=== PATIENT | male | born 1960 | race Caucasian/White ===

== ENCOUNTER 2020-11-02 08:55 | Day surgery (SDC) | payer BC ==
[2020-11-01 10:00] VITALS: BMI 25.4
--- NOTE | 2020-11-01 19:23 | HP ---
HISTORY AND PHYSICAL DATE OF SURGERY: 11/02/2020 Baldo Choudhary is a 60-year-old gentleman who was seen with a left foot subacute crush injury. There was a concern for potential abscess. We discussed options. I recommended irrigation and debridement of the left foot. He was agreeable. Consent was obtained. PAST MEDICAL HISTORY: Noncontributory. SURGICAL HISTORY: Bilateral knee arthroscopy, bilateral shoulder surgery. MEDICATIONS: Bactrim. ALLERGIES: NONE. SOCIAL HISTORY: He denies current tobacco use. PHYSICAL EVALUATION OF LEFT FOOT: There is a granulating wound along the distal lateral foot to include the plantar aspect of 5th toe. There is some mild erythema proximally. Some mild serous drainage. No palpable abscess. There is good perfusion distally. He has a good pedal pulse present. Radiographs of his left foot revealed a complex displaced subacute proximal phalanx fracture of the 5th toe. IMPRESSION: 1. Left foot crush injury with residual wound and possible abscess. 2. History of left 5th toe proximal phalanx fracture. PLAN: Irrigation and debridement of the left foot wound. MMODL / IJN: [id number] /
[2020-11-02] MEDS ORDERED: ONDANSETRON 4 MG/2 ML VIAL ONE (09:32)
[2020-11-02] MEDS ORDERED: LACTATED RINGERS 1,000 ML IV ONE (09:32)
[2020-11-02] MEDS ORDERED: DEXAMETHASONE SOD PHOSPHATE 4 MG/ML 1 ML VIAL IVP ONE (09:34)
[2020-11-02] MEDS ORDERED: ONDANSETRON 4 MG/2 ML VIAL IVP ONE (09:34)
[2020-11-02 09:56] LABS: ALT 22 U/L (4-49); AST 27 U/L (17-59); African American GFR (CKD) >90 (>60 ml/min/1.73 sqM); Albumin 4.3 g/dL (3.5-5.0); Alkaline Phosphatase 82 U/L (38-126); Anion Gap 10 mmol/L; Blood Urea Nitrogen 13 mg/dL (9-20); Calcium 9.6 mg/dL (8.4-10.2); Carbon Dioxide 22 mmol/L (22-30); Chloride 108 mmol/L (98-107); Glucose 104 mg/dL (74-99); Non-African American GFR(CKD) 80 (>60 ml/min/1.73 sqM); Potassium 4.3 mmol/L (3.5-5.1); Sodium 140 mmol/L (137-145); Total Bilirubin 0.3 mg/dL (0.2-1.3); Total Protein 6.9 g/dL (6.3-8.2)
[2020-11-02 10:11] LABS: Basophils % (A) 0 %; Eosinophils # (A) 0.2 k/uL (0-0.7); Eosinophils % (A) 2 %; HCT 42.6 % (39.0-53.0); HGB 14.7 gm/dL (13.0-17.5); Lymphocytes # (A) 1.9 k/uL (1.0-4.8); Lymphocytes % (A) 27 %; MCH 28.6 pg (25.0-35.0); MCHC 34.4 g/dL (31.0-37.0); MCV 83.2 fL (80.0-100.0); Monocytes # (A) 0.5 k/uL (0-1.0); Monocytes % (A) 7 %; Neutrophils # (A) 4.5 k/uL (1.3-7.7); Neutrophils % (A) 63 %; Platelet Count 260 k/uL (150-450); RBC 5.12 m/uL (4.30-5.90); RDW 12.5 % (11.5-15.5); WBC 7.2 k/uL (3.8-10.6)
[2020-11-02] MEDS ORDERED: fentaNYL (PF) 50 MCG/ML 2 ML AMP ONE (10:11)
[2020-11-02] MEDS ORDERED: PROPOFOL 10 MG/ML 20 ML VIAL IV ONE (10:11)
[2020-11-02] MEDS ORDERED: MIDAZOLAM 2 MG/2 ML VIAL ONE (10:11)
[2020-11-02] MEDS ORDERED: LIDOCAINE 1% INJ 10MG/ML (20 ML MDV) ONE (10:11)
--- NOTE | 2020-11-02 11:01 | P.OP ---
Date of Procedure: 11/02/20 Preoperative Diagnosis: Left lateral foot wound Postoperative Diagnosis: Left lateral foot wound measuring 3 cm X 2 cm Procedure(s) Performed: Irrigation and incisional debridement left lateral foot wound measuring 3 cm x 2 cm Anesthesia: LEANNE Surgeon: Donal Victoria Mine Expert #1: Ilya Otto Estimated Blood Loss (ml): 7 Pathology: none sent Condition: stable Disposition: PACU Indications for Procedure: 60-year-old gentleman seen with a left lateral foot wound with a concern for possible deep infection. I discussed options. We elected to proceed with irrigation debridement Operative Findings: see description of procedure Description of Procedure: Patient was taken to the operative suite. He received preoperative IV antibiotics. He underwent a general anesthetic by the department of anesthesia. The left foot was prepped and draped in the normal sterile orthopedic fashion. I evaluated the wound. The measured 3 cm x 2 cm along the distal lateral foot area extending into the plantar aspect of the small toe. I now began at the distal end of the wound and utilizing a #15 blade I performed an incisional debridement of some necrotic appearing tissue which was superficial. I got into the subcutaneous fat but there was no evidence for any abnormal tissue deeper than that. I now began debriding out the necrotic-appearing tissue along the large area of this wound again utilizing a #15 blade performing an incisional debridement of the superficial necrotic appearing tissue. Just along the lateral aspect of the metatarsal phalangeal joint area there was a deeper area of necrotic tissue. I again debrided this out noting it was still the subcutaneous area and nothing communicating with the deep/bony areas. Once that completed the incisional debridement of all the necrotic tissue utilizing a #15 blade I evaluated the wound. I could not find any evidence for any deep infection. I now irrigated the wound out copiously with 1000 mL of antibiotic irrigant solution. I again explored the wound and again noted all the necrotic tissue had been successfully debrided out. I did approximate the distal part of the wound with 3 simple interrupted nylon sutures. I applied sterile dressings and a sterile bandage. The patient was awakened having tolerated procedure well. No tourniquet was utilized. Tadeo PARKINSON assisted with the procedure.
[2020-11-02 11:06] VITALS: TEMP 96.8
[2020-11-02 11:34] VITALS: RESP 16
[2020-11-02 12:40] VITALS: BP 122/70; PULSE 63
== END 2020-11-02 12:55 | disposition home or self-care (01) ==
LOC: OR 08:55 → EDBD 11:15 → OR 12:55
PROVIDERS: ATTEND Orthopaedic Surgery
DX: S91.302A Unspecified open wound, left foot, initial encounter (principal)
CPT/HCPCS: 11042; 80053; 85025; 87070; 87205; J2250; J1100; J0690; J2405; J2001; J3010; J2704

== ENCOUNTER → 2021-09-15 | Outpatient (CLI) | payer BC ==
[2021-09-15 11:26] LABS: Basophils # (A) 0.05 X 10*3/uL (0.00-0.10); Eosinophils # (A) 0.17 X 10*3/uL (0.04-0.35); Eosinophils % (A) 3.3 %; HCT 41.6 % (39.6-50.0); Immature Grans, Automated 0.2 %; Lymphocytes % (A) 33.1 %; MCH 27.7 pg (27.0-32.0); MCHC 33.7 g/dL (32.0-37.0); MCV 82.4 fL (80.0-97.0); Mean Platelet Volume 9.4 fL (9.5-12.2); Monocytes # (A) 0.49 X 10*3/uL (0.20-1.00); Monocytes % (A) 9.5 %; NRBC Per 100 WBC 0 /100 WBCS (0.0-0.0); Neutrophils # (A) 2.72 X 10*3/uL (1.80-7.70); Neutrophils % (A) 52.9 %; Platelet Count 248 X 10*3/uL (140-440); RBC 5.05 X 10*6/uL (4.40-5.60); RDW 12.5 % (11.5-14.5); WBC 5.14 X 10*3/uL (4.50-10.00)
[2021-09-15 11:35] LABS: Anion Gap 8.9 mmol/L (10.00-18.00); BUN/Creat Ratio 20.6 Ratio (12.00-20.00); Blood Urea Nitrogen 17.3 mg/dL (9.0-27.0); Calcium 8.9 mg/dL (8.7-10.3); Carbon Dioxide 24.5 mmol/L (20.0-27.5); Non-African American GFR(CKD) 93.2 (60.0-200.0); Potassium 4.3 mmol/L (3.5-5.5)
[2021-09-15 12:43] LABS: INR 0.93 (0.90-1.11); Prothrombin Time 10.5 sec (9.9-11.9)
== END | disposition home or self-care (01) ==
LOC: LABPAT 08:03
PROVIDERS: ATTEND Orthopaedic Surgery
DX: Z01.812 Encounter for preprocedural laboratory examination (principal); Z22.322 Carrier or suspected carrier of Methicillin resistant Staphylococcus aureus; M17.11 Unilateral primary osteoarthritis, right knee
CPT/HCPCS: 80048; 85025; 85610; 87070; 93005

== ENCOUNTER → 2021-09-19 | Day surgery (SDC) | payer BC ==
[2021-09-18 09:54] VITALS: BMI 25.0
--- NOTE | 2021-09-18 10:31 | HP ---
HISTORY AND PHYSICAL DATE OF SURGERY: 09/19/2021 Baldo Choudhary is a 61-year-old gentleman seen with symptomatic right knee osteoarthritis. We discussed options for treatment. He elected to proceed with right total knee arthroplasty. Consent was obtained. PAST MEDICAL HISTORY: Noncontributory. PAST SURGICAL HISTORY: Multiple right knee surgeries, left knee arthroscopy, bilateral shoulder surgery. DAILY MEDICATIONS: Ibuprofen. ALLERGIES: NONE. SOCIAL HISTORY: He denies tobacco use. PHYSICAL EVALUATION OF THE RIGHT KNEE: He has multiple previous well-healed incisions. His range of motion is negative 3 to 100. He has a moderate effusion. Tenderness along the medial and lateral joint lines. Positive medial Matilde's. Positive lateral Matilde's. Crepitus along the medial and lateral patellofemoral compartments with range of motion. There is some pain with patellofemoral compression. Ligaments stable. Hip rotation without pain. Distal neurovascular exam is intact. Radiographs of the right knee reveal severe osteoarthritic changes. IMPRESSION: Right knee osteoarthritis. PLAN: Right total knee arthroplasty. MMODL / IJN: [id number] /
[~2021-09-19] MED LIST: ACETAMINOPHEN TAB 500 MG TAB PO PRN; DEXAMETHASONE SOD PHOSPHATE 4 MG/ML 1 ML VIAL IV ONE; GLYCOPYRROLATE 0.2 MG/ML 2 ML VIAL ONE; HYDROcodone/APAP 5-325MG 1 EACH TAB PO PRN; HYDROcodone/APAP 7.5-325MG 1 EACH TAB PO ONE; HYDROcodone/APAP 7.5-325MG 1 EACH TAB PO PRN; HYDROmorphone (PF) 1 MG/ML ONE; HYDROmorphone 0.5 MG/0.5 ML SYRINGE IVP PRN; HYDROmorphone 1 MG/ML 1 ML SYRINGE IVP PRN; KETAMINE 10 MG/ML 20 ML VIAL ONE; LACTATED RINGERS 1,000 ML IV ONE; LACTATED RINGERS 1,000 ML IV SCH; LIDOCAINE 1% (10MG/ML) FOR IV START INTRADERMA PRN; LIDOCAINE 2% INJ 20 MG/ML (2 ML VIAL) ONE; MELOXICAM 7.5 MG TAB PO PRN; MIDAZOLAM 2 MG/2 ML VIAL IV PRN; MIDAZOLAM 2 MG/2 ML VIAL IVP ONE; NALOXONE 0.4 MG/ML 1 ML VIAL IV PRN; NEOSTIGMINE 1 MG/ML 10 ML VIAL ONE; ONDANSETRON 4 MG/2 ML VIAL IVP ONE; ONDANSETRON 4 MG/2 ML VIAL IVP PRN; PROPOFOL 10 MG/ML 20 ML VIAL IV ONE; ROCURONIUM 10 MG/ML (5 ML VIAL) IV ONE; ROPIVACAINE 0.2%-NS ON-Q PUMP 1,090 MG, EMPTY PAIN BALL 1 EACH MISCELLANE PRN; ROPIVACAINE 5 MG/ML 30 ML VIAL ONE; SUCCINYLCHOLINE CHLORIDE 100 MG/5 ML SYR IV ONE; TRANEXAMIC ACID IN NACL,ISO-OS 1,000 MG in SALINE 1 100ML.BAG IVPB PRN; TRANEXAMIC ACID IN NACL,ISO-OS 1,000 MG/100 ML BAG ONE; ceFAZolin 1,000 MG VIAL IVPB ONE; ceFAZolin 1,000 MG in SODIUM CHLORIDE 0.9% 1,000 ML IRRIGATION ONE; fentaNYL (PF) 50 MCG/ML 2 ML AMP IVP ONE; fentaNYL (PF) 50 MCG/ML 2 ML AMP ONE
[2021-09-19] MEDS: ONDANSETRON 4 MG/2 ML VIAL IVP ONE ×2 (06:52→10:30)
--- NOTE | 2021-09-19 09:38 | P.OP ---
Date of Procedure: 09/19/21 Preoperative Diagnosis: Right knee osteoarthritis Postoperative Diagnosis: Right knee osteoarthritis Procedure(s) Performed: Right total knee arthroplasty Implants: 1. Depuy attune size 8 cruciate retaining cemented femur 2. Depuy attune size 8 fixed bearing cemented tibial baseplate 3. Depuy attune size 8 fixed bearing cruciate retaining 5 mm polyethylene tibial insert 4. Depuy attune 41 mm all polyethylene cemented patella Anesthesia: GETA, regional (Adductor canal catheter, Ipack block) Surgeon: Donal Victoria Dental Instrument Maker #1: Ilya Otto Estimated Blood Loss (ml): 45 Pathology: other (Bone) Condition: stable Disposition: PACU Indications for Procedure: 61-year-old patient seen with symptomatic right knee osteoarthritis. After treatment options were discussed, he elected to proceed with total knee arthr oplasty Operative Findings: See description of procedure Description of Procedure: Patient was taken to the operative suite after having an adductor canal catheter placed by the department of anesthesia as well as and Ipack block for postoperative pain management. Patient underwent a general anesthetic by the department of anesthesia. Patient was given preoperative IV intake antibiotics and TXA. A well-padded tourniquet was placed about the right lower extremity. The lower extremity was then prepped and draped in the normal sterile orthopedic fashion. The extremity was elevated, a tourniquet was insufflated to 300. A standard anterior incision was made sharply through skin. Dissection was taken down through the subcutaneous soft tissues down to the extensor mechanism. A medial arthrotomy was performed, patella was everted and knee was flexed. There was advanced osteoarthritis noted. I introduced my distal intramedullary femo ral drill. I then introduced the distal femoral cutting jig. Tadeo PARKINSON secured the cutting jig with 2 pins. I held retractors in position while Tadeo PARKINSON performed the distal femoral resection through the guide area we now removed her distal femoral cutting guide. We now placed our 4-in-1 femoral cutting block and positioned and it was secured with 2 pins by Tadeo PARKINSON while I held the block in position. The distal femoral finishing was now completed. A proximal tibial cutting guide was positioned. I held the guide in the appropriate position with both hands well Tadeo PARKINSON inserted stabilizing pins into the guide. Proximal tibial cut was made. We now placed a trial femoral component into position, along with an appropriate size tibial tray and insert. We now took the knee through range of motion and had full extension good flexion and good overall soft tissue balance noted. The patella was everted and stabilized with 2 towel clips held by Tadeo PARKINSON while I performed a flush with patellar quad tendon utilizing a fresh sawblade. We templated the patella, appropriate drill holes were made. An appropriate trial patella was positioned, knee was taken through full range of motion with the patella tracking very nicely. The trial patella was removed. Drill holes were made through the femoral component. All trial components were removed after marking off the appropriate rotation of the tibia. Retractors were now positioned along the proximal tibia. An appropriate keel punch was made with the appropriate size tibial guide by myself on Tadeo PARKINSON assisted by holding retractors. At this point appropriate size implants were chosen and opened. The joint was irrigated copiously with pulse lavage mechanical irrigation. The posterior capsule was infiltrated with local analgesic. The wound was irrigated with pulse lavage mechanical irrigation. We mixed antibiotic methylmethacrylate. We placed the knee into flexion. We placed multiple retractors assisted by Tadeo PARKINSON to expose the proximal tibia. Once the methyl methacrylate was ready, the tibial component was cemented into place removing any excess methylmethacrylate form by both myself and Tadeo PARKINSON. The femoral component was cemented into place removing the removing any excess methylmethacrylate performed by both myself and Tadeo PARKINSON. We then inserted the appropriate size polyethylene tibial insert. We made sure that it was locked into position. We took the knee into full extension, and then back in a flexion making sure we had removed any excess methylmethacrylate. The patellar component was then cemented down and secured with clamp. Excess methylmethacrylate removed. We kept the knee in full extension, patellar clamp in position until methylmethacrylate had hardened. Once it had hardened the patellar clamp was removed. The knee was taken through full range of motion. The patella tracked nicely. There was good soft tissue balancing. The tourniquet was now released. Additional hemostasis was achieved via electrocautery. A second gram of TXA was given. The wound again was irrigated with pulse lavage mechanical irrigation. The superficial soft tissues were infiltrated local analgesic. The extensor mechanism was repaired with Ethibond. We checked the repair with range of motion and it was stable. The subcutaneous soft tissues were repaired with Vicryl in layers. The skin was approximated with pernio/Dermabond. Sterile dressings were applied followed by loose web roll and Ian bandage. The patient was transferred to a bed, and taken to recovery in stable and satisfactory condition. Tadeo PARKINSON assisted with this complex procedure.
[2021-09-19 09:54] VITALS: TEMP 96.9
[2021-09-19] MEDS: HYDROmorphone 0.5 MG/0.5 ML SYRINGE IVP PRN ×3 (10:13→10:27)
--- NOTE | 2021-09-19 10:38 | XR ---
EXAMINATION TYPE: XR knee limited RT DATE OF EXAM: 09/19/2021 CLINICAL HISTORY: Postoperative evaluation Two views of the right knee are submitted. Identified are changes of total knee arthroplasty with femoral and tibial components appearing well seated. Postsurgical soft tissue changes are noted. Alignment is anatomic.
[2021-09-19 13:07] VITALS: RESP 16
--- NOTE | 2021-09-19 13:26 | P.ANPRN ---
Procedure Note - Anesthesia - Nerve Block Performed Right Adductor Canal Time Out Performed: Yes (07:05) Date of Procedure: 09/19/21 Procedure Start Time: :05 Procedure Stop Time: 07:16 Location of Patient: PreOp Indication: Acute Post-Operative Pain, Requested by Surgeon (Dr Victoria) Sedation Type: Sedate with meaningful contact maintained Preparation: Sterile Prep, Sterile Dressing Position: Supine Catheter: Indwelling Needle Types: Pajunk Needle Gauge: 21 Ultrasound used to visualize needle placement: Yes Ultrasound used to observe medication spread: Yes Injectate: 0.5% Ropivacaine (see comment for volume) (15cc) Blood Aspirated: No Pain Paresthesia on Injection Noted: No Resistance on Injection: Normal Image Stored and Saved: Yes Events: Uneventful and Well Tolerated
--- NOTE | 2021-09-19 13:27 | P.ANPRN ---
Procedure Note - Anesthesia - Nerve Block Performed Right iPack Time Out Performed: Yes Date of Procedure: 09/19/21 Procedure Start Time: 07:17 Procedure Stop Time: :25 Location of Patient: PreOp Indication: Acute Post-Operative Pain, Requested by Surgeon (Dr Victoria) Sedation Type: Sedate with meaningful contact maintained Preparation: Sterile Prep Position: Supine Catheter: None Needle Types: Pajunk Needle Gauge: 21 Ultrasound used to visualize needle placement: Yes Ultrasound used to observe medication spread: Yes Injectate: 0.5% Ropivacaine (see comment for volume) (15cc) Blood Aspirated: No Pain Paresthesia on Injection Noted: No Resistance on Injection: Normal Image Stored and Saved: Yes Events: Uneventful and Well Tolerated
[2021-09-19 14:22] VITALS: BP 155/91; PULSE 76
== END | disposition home health service (06) ==
LOC: OR 05:36
PROVIDERS: ATTEND Orthopaedic Surgery
DX: M17.11 Unilateral primary osteoarthritis, right knee (principal); G89.18 Other acute postprocedural pain
CPT/HCPCS: 27447; 97110; 97161; 64999; 64448; 76942; 88300; 73560; C1776; C1713 ×2; J2250; J1100; J2710; J0690 ×2; J2405; J3010; J1170 ×2; J2795 ×2; J0330; J2704; J2001

== ENCOUNTER → 2023-08-15 | Outpatient (CLI) | payer BC ==
[2023-08-15 14:31] LABS: Basophils # (A) 0.03 X 10*3/uL (0.00-0.10); Basophils % (A) 0.5 %; Eosinophils # (A) 0.14 X 10*3/uL (0.04-0.35); Eosinophils % (A) 2.2 %; HCT 43.4 % (39.6-50.0); HGB 14.8 g/dL (13.0-17.0); Lymphocytes # (A) 2.08 X 10*3/uL (0.90-5.00); Lymphocytes % (A) 33.3 %; MCH 27.8 pg (27.0-32.0); MCHC 34.1 g/dL (32.0-37.0); MCV 81.4 FL (80.0-97.0); Mean Platelet Volume 9.5 FL (9.5-12.2); NRBC Per 100 WBC 0 X 10*3/uL (0.00-0.01); Neutrophils # (A) 3.49 X 10*3/uL (1.80-7.70); Neutrophils % (A) 55.8 %; Platelet Count 235 X 10*3/uL (140-440); RBC 5.33 X 10*6/uL (4.40-5.60); RDW 12.7 % (11.5-14.5); WBC 6.25 X 10*3/uL (4.50-10.00)
[2023-08-15 14:41] LABS: Blood Urea Nitrogen 20.1 mg/dL (9.0-27.0); Calcium 9.9 mg/dL (8.7-10.3); Carbon Dioxide 24.4 mmol/L (21.6-31.8); Chloride 104 mmol/L (96-109); Glucose 107 mg/dL (70-110); Potassium 4.4 mmol/L (3.5-5.5); Sodium 140 mmol/L (135-145)
[2023-08-15 15:41] LABS: Prothrombin Time 10.8 sec (9.9-11.9)
== END | disposition home or self-care (01) ==
LOC: LABWHC1 09:57
PROVIDERS: ATTEND Orthopaedic Surgery
DX: Z01.818 Encounter for other preprocedural examination (principal); M17.12 Unilateral primary osteoarthritis, left knee; R94.31 Abnormal electrocardiogram [ECG] [EKG]; R00.1 Bradycardia, unspecified; I51.0 Cardiac septal defect, acquired; Z22.322 Carrier or suspected carrier of Methicillin resistant Staphylococcus aureus
CPT/HCPCS: 36415; 80048; 85025; 85610; 87070; 93005

== ENCOUNTER 2023-09-11 06:32 | Day surgery (SDC) | payer BC ==
--- NOTE | 2023-09-10 14:45 | HP ---
HISTORY AND PHYSICAL DATE OF SCHEDULED SURGERY: 09/11/2023. HISTORY OF PRESENT ILLNESS: Baldo Choudhary is a 63-year-old gentleman seen with symptomatic left knee osteoarthritis. We discussed options regarding treatment. He elected to proceed with left total knee arthroplasty. Consent regarding the procedure was obtained. PAST MEDICAL HISTORY: Noncontributory. SURGICAL HISTORY: Bilateral knee arthroscopy, right total knee arthroplasty, shoulder surgery. DAILY MEDICATIONS: Ibuprofen. ALLERGIES: None. SOCIAL HISTORY: Denies tobacco use. PHYSICAL EVALUATION OF THE LEFT KNEE: His range of motion is -2/120degrees. He has mild effusion. Tenderness, medial joint line. Crepitance along the medial patellofemoral compartments with range of motion. Pain with patellofemoral compression. Ligaments stable. Hip rotation without pain. Distal neurovascular exam is intact. IMAGING STUDIES: Left knee radiographs reveal severe osteoarthritic changes. IMPRESSION: Left knee osteoarthritis. PLAN: Left total knee arthroplasty. MMODL / IJN: [id number] /
[~2023-09-11 06:32] MED LIST changes: -ACETAMINOPHEN TAB 500 MG TAB PO PRN; -DEXAMETHASONE SOD PHOSPHATE 4 MG/ML 1 ML VIAL IV ONE; -GLYCOPYRROLATE 0.2 MG/ML 2 ML VIAL ONE; -HYDROcodone/APAP 5-325MG 1 EACH TAB PO PRN; -HYDROcodone/APAP 7.5-325MG 1 EACH TAB PO ONE; -HYDROcodone/APAP 7.5-325MG 1 EACH TAB PO PRN; -HYDROmorphone (PF) 1 MG/ML ONE; -HYDROmorphone 0.5 MG/0.5 ML SYRINGE IVP PRN; -HYDROmorphone 1 MG/ML 1 ML SYRINGE IVP PRN; -KETAMINE 10 MG/ML 20 ML VIAL ONE; -LACTATED RINGERS 1,000 ML IV ONE; -LACTATED RINGERS 1,000 ML IV SCH; -LIDOCAINE 1% (10MG/ML) FOR IV START INTRADERMA PRN; -LIDOCAINE 2% INJ 20 MG/ML (2 ML VIAL) ONE; -MELOXICAM 7.5 MG TAB PO PRN; -MIDAZOLAM 2 MG/2 ML VIAL IV PRN; -MIDAZOLAM 2 MG/2 ML VIAL IVP ONE; -NALOXONE 0.4 MG/ML 1 ML VIAL IV PRN; -NEOSTIGMINE 1 MG/ML 10 ML VIAL ONE; -ONDANSETRON 4 MG/2 ML VIAL IVP ONE; -ONDANSETRON 4 MG/2 ML VIAL IVP PRN; -PROPOFOL 10 MG/ML 20 ML VIAL IV ONE; -ROCURONIUM 10 MG/ML (5 ML VIAL) IV ONE; -ROPIVACAINE 0.2%-NS ON-Q PUMP 1,090 MG, EMPTY PAIN BALL 1 EACH MISCELLANE PRN; -ROPIVACAINE 5 MG/ML 30 ML VIAL ONE; -SUCCINYLCHOLINE CHLORIDE 100 MG/5 ML SYR IV ONE; +TRANEXAMIC 1,000 MG/100ML-NACL 1,000 MG in SALINE 1 100ML.BAG IVPB PRN; -TRANEXAMIC ACID IN NACL,ISO-OS 1,000 MG in SALINE 1 100ML.BAG IVPB PRN; -TRANEXAMIC ACID IN NACL,ISO-OS 1,000 MG/100 ML BAG ONE; -ceFAZolin 1,000 MG VIAL IVPB ONE; -ceFAZolin 1,000 MG in SODIUM CHLORIDE 0.9% 1,000 ML IRRIGATION ONE; -fentaNYL (PF) 50 MCG/ML 2 ML AMP IVP ONE; -fentaNYL (PF) 50 MCG/ML 2 ML AMP ONE
[2023-09-11] MEDS ORDERED: MIDAZOLAM 2 MG/2 ML VIAL IV PRN (07:00)
[2023-09-11] MEDS: ACETAMINOPHEN TAB 500 MG TAB PO PRN (07:28)
[2023-09-11] MEDS: MELOXICAM 7.5 MG TAB PO PRN (07:28)
[2023-09-11] MEDS: IV FLUID CONTINUATION 1,000 ML IV ONE (07:30)
[2023-09-11] MEDS: LACTATED RINGERS 1,000 ML IV SCH (07:30)
[2023-09-11] MEDS: LIDOCAINE 1% (10MG/ML) FOR IV START INTRADERMA PRN (07:35)
[2023-09-11] MEDS: DEXAMETHASONE SOD PHOSPHATE 4 MG/ML 1 ML VIAL IV ONE (07:52)
[2023-09-11] MEDS: ONDANSETRON 4 MG/2 ML VIAL IVP ONE (07:52)
[2023-09-11] MEDS: MIDAZOLAM 2 MG/2 ML VIAL IVP ONE (08:05)
--- NOTE | 2023-09-11 08:29 | P.ANPRN ---
Procedure Note - Anesthesia - Nerve Block Performed Left iPack Single Time Out Performed: Yes Date of Procedure: 09/11/23 Procedure Start Time: 08:04 Procedure Stop Time: 08:09 Location of Patient: PreOp Indication: Acute Post-Operative Pain, Analgesia, Requested by Surgeon Sedation Type: Sedate with meaningful contact maintained Preparation: Sterile Prep Position: Right Lateral Catheter: None Needle Types: Pajunk Needle Gauge: 21 Ultrasound used to visualize needle placement: Yes Ultrasound used to observe medication spread: Yes Injectate: 0.5% Ropivacaine (see comment for volume) (Ropiv 20ml+decaron 4mg) Blood Aspirated: No Pain Paresthesia on Injection Noted: No Resistance on Injection: Normal Image Stored and Saved: Yes Events: Uneventful and Well Tolerated
--- NOTE | 2023-09-11 08:31 | P.ANPRN ---
Procedure Note - Anesthesia - Nerve Block Performed Left Adductor Canal Infusion Time Out Performed: Yes Date of Procedure: 09/11/23 Procedure Start Time: 08:10 Procedure Stop Time: 08:15 Location of Patient: PreOp Indication: Acute Post-Operative Pain, Analgesia, Requested by Surgeon Sedation Type: Sedate with meaningful contact maintained Preparation: Sterile Prep Position: Supine Needle Types: On-Q Ultrasound used to visualize needle placement: Yes Ultrasound used to observe medication spread: Yes Injectate: 0.5% Ropivacaine (see comment for volume) (Ropiv 15 ml+decadron 4mg) Blood Aspirated: No Pain Paresthesia on Injection Noted: No Resistance on Injection: Normal Image Stored and Saved: Yes Events: Uneventful and Well Tolerated
[2023-09-11] MEDS ORDERED: NEOSTIGMINE 1 MG/ML 10 ML VIAL ONE (08:37)
[2023-09-11] MEDS ORDERED: TRANEXAMIC 1,000 MG/100ML-NACL PREMIX BAG ONE (08:37)
[2023-09-11] MEDS ORDERED: PROPOFOL 10 MG/ML 20 ML VIAL IV ONE (08:37)
[2023-09-11] MEDS ORDERED: MIDAZOLAM 2 MG/2 ML VIAL ONE (08:37)
[2023-09-11] MEDS ORDERED: fentaNYL (PF) 50 MCG/ML 2 ML AMP ONE (08:37)
[2023-09-11] MEDS ORDERED: KETAMINE HCL IN 0.9 % NACL 50 MG/5 ML SYRINGE ONE (08:37)
[2023-09-11] MEDS ORDERED: ESMOLOL 100 MG/10 ML VIAL ONE (08:37)
[2023-09-11] MEDS ORDERED: ROCURONIUM 10 MG/ML (5 ML VIAL) IV ONE (08:37)
[2023-09-11] MEDS ORDERED: ROPIVACAINE 5 MG/ML 30 ML VIAL ONE (08:37)
[2023-09-11] MEDS ORDERED: DEXAMETHASONE SOD PHOSPHATE 4 MG/ML 1 ML VIAL ONE (08:37)
[2023-09-11] MEDS ORDERED: LIDOCAINE 1% INJ 10MG/ML (20 ML MDV) ONE (08:37)
[2023-09-11] MEDS ORDERED: GLYCOPYRROLATE 0.2 MG/ML 2 ML VIAL ONE (08:37)
[2023-09-11] MEDS ORDERED: SUCCINYLCHOLINE CHLORIDE 200 MG/10 ML VIAL IV ONE (08:37)
[2023-09-11] MEDS ORDERED: HYDROmorphone (PF) 1 MG/ML ONE (08:37)
[2023-09-11] MEDS ORDERED: LABETALOL 5 MG/ML VIAL MDV ONE (08:37)
[2023-09-11] MEDS: ceFAZolin 1,000 MG in SODIUM CHLORIDE 0.9% 1,000 ML IRRIGATION ONE (08:42)
[2023-09-11] MEDS: LACTATED RINGERS 1,000 ML IV ONE (09:58)
[2023-09-11] MEDS ORDERED: HYDROmorphone 0.5 MG/0.5 ML SYRINGE IVP PRN ×2 (10:34)
[2023-09-11] MEDS ORDERED: LACTATED RINGERS 1,000 ML IV ONE (10:34)
[2023-09-11] MEDS ORDERED: NALOXONE 0.4 MG/ML 1 ML VIAL IV PRN (10:34)
[2023-09-11] MEDS ORDERED: HYDROcodone/APAP 7.5-325MG 1 EACH TAB PO PRN (10:34)
[2023-09-11] MEDS ORDERED: HYDROmorphone 1 MG/ML 1 ML SYRINGE IVP PRN (10:34)
--- NOTE | 2023-09-11 10:34 | P.OP ---
Date of Procedure: 09/11/23 Preoperative Diagnosis: Left knee osteoarthritis Postoperative Diagnosis: Left knee osteoarthritis Procedure(s) Performed: Left total knee arthroplasty Implants: 1. DePuy attune size 8 left cruciate retaining cemented femur 2. DePuy attune size 8 fixed-bearing cemented tibial baseplate 3. DePuy attune size 8 fixed-bearing cruciate retaining 5 mm polyethylene tibial insert 4. DePuy attune 41 mm all polyethylene cemented patella Anesthesia: GETA, regional (Adductor canal catheter, iPAQ block) Surgeon: Donal Victoria Soft Shoe Dancer #1: aWng Mcgovern Estimated Blood Loss (ml): 45 Pathology: none sent Condition: stable Disposition: PACU Indications for Procedure: 63-year-old patient seen with symptomatic left knee osteoarthritis. After treatment options were discussed with him, he elected to proceed with total knee arthroplasty. Operative Findings: See description of procedure Description of Procedure: Patient was taken to the operative suite after having an adductor canal catheter placed by the department of anesthesia. Patient underwent a general anesthetic by the department of anesthesia. Patient was given preoperative IV intake antibiotics and TXA. A well-padded tourniquet was placed about the left lower extremity. The lower extremity was then prepped and draped in the normal sterile orthopedic fashion. The extremity was elevated, a tourniquet was in sufflated to 300. A standard anterior incision was made sharply through skin. Dissection was taken down through the subcutaneous soft tissues down to the extensor mechanism. A medial arthrotomy was performed, patella was everted and knee was flexed. There was advanced osteoarthritis noted. I introduced my distal intramedullary femoral drill. I then introduced the distal femoral cutting jig. Wang PARKINSON secured the cutting jig with 2 pins. I held retractors in position while Wang PARKINSON performed the distal femoral resection through the guide area we now removed her distal femoral cutting guide. We now placed our 4-in-1 femoral cutting block and positioned and it was secured with 2 pins by Wang PARKINSON while I held the block in position. The distal femoral finishing was now completed. A proximal tibial cutting guide was positioned. I held the guide in the appropriate position with both hands while Wang PARKINSON inserted stabilizing pins into the guide. Proximal tibial cut was made. We now placed a trial femoral component into position, along with an appropriate size tibial tray and insert. We now took the knee through range of motion and had full extension good flexion and good overall soft tissue balance noted. The patella was everted and stabilized with 2 towel clips held by Wang PARKINSON while I performed a flush with patellar quad tendon utilizing a fresh sawblade. We templated the patella, appropriate drill holes were made. An appropriate trial patella was positioned, knee was taken through full range of motion with the patella tracking very nicely. The trial patella was removed. Drill holes were made through the femoral component. All trial components were removed after marking off the appropriate rotation of the tibia. Retractors wer e now positioned along the proximal tibia. An appropriate keel punch was made with the appropriate size tibial guide by myself on Wang PARKINSON assisted by holding retractors. At this point appropriate size implants were chosen and opened. The joint was irrigated copiously with pulse lavage mechanical irrigation. The wound was irrigated with pulse lavage mechanical irrigation. We mixed antibiotic methylmethacrylate. We placed the knee into flexion. We placed multiple retractors assisted by Wang PARKINSON to expose the proximal tibia. Once the methyl methacrylate was ready, the tibial component was cemented into place removing any excess methylmethacrylate form by both myself and Wang PARKINSON. The femoral component was cemented into place removing the removing any excess methylmethacrylate performed by both myself and Wang PARKINSON. We then inserted the appropriate size polyethylene tibial insert. We made sure that it was locked into position. We took the knee into full extension, and then back in a flexion making sure we had removed any excess methylmethacrylate. The patellar component was then cemented down and secured with clamp. Excess methylmethacrylate removed. We kept the knee in full extension, patellar clamp in position until methylmethacrylate had hardened. Once it had hardened the patellar clamp was removed. The knee was taken through full range of motion. The patella tracked nicely. There was good soft tissue balancing. The tourniquet was now released. Additional hemostasis was achieved via electrocautery. A second gram of TXA was given. The wound again was irrigated with pulse lavage mechanical irrigation. The extensor mechanism was repaired with Vicryl. We checked the repair with range of motion and it was stable. The subcutaneous soft tissues were repaired with Vicryl in layers. The skin was approximated with pernio/Dermabond. Sterile dressings were applied followed by loose web roll and Ian bandage. The patient was transferred to a bed, and taken to recovery in stable and satisfactory condition. Wang PARKINSON assisted with this complex procedure.
[2023-09-11] MEDS: ROPIVACAINE 1,100 MG, SODIUM CHLORIDE 0.9% 500 ML 330 ML, EMPTY PAIN BALL 1 EACH MISCELLANE PRN (11:08)
[2023-09-11] MEDS: HYDROmorphone 0.5 MG/0.5 ML SYRINGE IVP PRN (11:12)
[2023-09-11 11:27] VITALS: TEMP 97.4
--- NOTE | 2023-09-11 11:56 | XR ---
EXAMINATION TYPE: XR knee limited LT DATE OF EXAM: 09/11/2023 COMPARISON: NONE HISTORY: 63-year-old male evaluation for postoperative abnormality and alignment TECHNIQUE: 2 views FINDINGS: Images show placement of left total knee arthroplasty. Both distal femoral and proximal tib ial components of the prosthesis are well seated without periprosthetic fracture. Alignment grossly a natomic. Scattered soft tissue air as well as intra-articular air and anterior soft tissue swelling r elated to recent operation. IMPRESSION: Uncomplicated postoperative appearance left total knee arthroplasty.
[2023-09-11] MEDS: HYDROcodone/APAP 5-325MG 1 EACH TAB PO PRN (13:08)
[2023-09-11 13:10] VITALS: RESP 16
[2023-09-11] MEDS: ONDANSETRON 4 MG/2 ML VIAL IVP PRN (14:04)
[2023-09-11 15:43] VITALS: BP 152/85; PULSE 80
== END 2023-09-11 15:07 | disposition home health service (06) ==
LOC: OR 06:32
PROVIDERS: ATTEND Orthopaedic Surgery
DX: M17.12 Unilateral primary osteoarthritis, left knee (principal); G89.18 Other acute postprocedural pain; G47.33 Obstructive sleep apnea (adult) (pediatric); Z79.1 Long term (current) use of non-steroidal anti-inflammatories (NSAID)
CPT/HCPCS: 97530; 97161; 64999; 64448; 73560; 27447; C1776; C1713 ×2; C1751; J2250; J0330; J1100; J2710; J0690 ×2; J2405; J2001; J3010; J1170 ×2; J2795; J2704; J1920; J1805

== ENCOUNTER → 2023-11-11 | Outpatient (CLI) | payer BC ==
--- NOTE | 2023-11-11 08:42 | XR ---
EXAMINATION TYPE: XR knee limited LT DATE OF EXAM: 11/11/2023 7:21 AM CLINICAL INDICATION:Male, 63 years old with history of S/P LTKA; [facility] COMPARISON: 09/11/2023. TECHNIQUE: XR knee limited LT; examined in Frontal, lateral and oblique projections. FINDINGS: Status post total knee arthroplasty changes with hardware in appropriate alignment and in tact. No evidence of fracture. IMPRESSION: Status post total knee arthroplasty changes with hardware intact and appropriate alignment. No fractu res identified.
== END | disposition home or self-care (01) ==
LOC: RADXRMAIN 06:55
PROVIDERS: ATTEND Orthopaedic Surgery
DX: M25.562 Pain in left knee (principal); Z96.652 Presence of left artificial knee joint